=== PATIENT | female | born 1950 | race Two or more races ===

== ENCOUNTER → 2024-05-28 | Outpatient (CLI) | payer BC, MEDICARE ==
[~2024-05-28] VITALS: Ht 180.3 cm; Wt 113.4 kg
[2024-05-28] MEDS: REGADENOSON 0.4 MG/5 ML SYRG IV ONE ×2 (10:14→10:15)
== END | disposition home or self-care (01) ==
LOC: XYW 08:13
PROVIDERS: ATTEND Specialist
DX: I44.7 Left bundle-branch block, unspecified (principal); R07.9 Chest pain, unspecified; I10 Essential (primary) hypertension; E78.5 Hyperlipidemia, unspecified; J45.909 Unspecified asthma, uncomplicated; Z88.8 Allergy status to other drugs, medicaments and biological substances
CPT/HCPCS: 78452; 93017; A9500; J2785